=== PATIENT | male | born 1945 | race Caucasian/White ===

== ENCOUNTER → 2018-12-15 | Outpatient (CLI) | payer OTHER ==
[~2018-12-15] MED LIST: ACCUNEB SO1.25 MG/1 INH; ASPIRIN81 M2 PO; BACLOFEN 10MG T10 MG; CARVEDILOL12.5 MG PO; CARVEDILOL3.125 MG; CARVEDILOL6.25 MG PO; COREG25 MG PO; CYCLOBENZAPRINE5 MG; DOLOPHINE HCL5 MG PO; EFFEXOR 5050 MG/1 T1 PO; FLEXERIL PO; HYDROCODON-ACE1 EACH PO; HYDROCODONE; HYDROXYZINE HCL10 M1; HYDROXYZINE HCL25 M1 PO; HYPOTEARS EYE D15 ML OPHTHALMIC; IRON159 MG; IRON325 PO; LASIX 20 MG TAB20 MG PO; LEVAQUIN 500 M500 M5 PO; LEVOTHYROXIN0.137 M1 PO; LEVOTHYROXINE 0.15MG PO; LEVOTHYROXINE0.2 M1; LIPITOR40 MG PO; LOVASTAT10; LOVASTAT40 PO; METHADONE HCL 110 MG PO; MIRTAZAPINE7.5 MG; MS CONTIN15 MG PO; NEURONTIN600 MG PO; NITROGLYCERIN0.4 MG SUBLING; NORCO 5-325 TA1 EACH PO; PAROXETINE ER12.5 M1; PAXIL10 MG PO; PLAVIX 75 MG TA75 M1; PLAVIX 75 MG TA75 M1 PO; PREDNISONE 10 M10 M1 PO; PRILOSEC 20 MG20 MG; PRILOSEC 20 MG20 MG PO; PROAIR HFA8.5 GM INH; REMERON 30 MG T30 M1 PO; REMERON15 MG PO; RESTORIL7.5 MG PO; SENNA LAXATIVE25 MG PO; SENOKOT-S1 TA1 PO; SYMBICORT160 MCG/4. INH; VENLAFAXINE HCL25 MG; VENLAFAXINE HCL25 MG PO; VISTARIL 25 MG25 M1 PO; ZYRTEC10 MG PO; [UNRECOGNIZED DRUG - OTHER] PO; [UNRECOGNIZED DRUG - REMARK]
--- NOTE | 2018-12-15 16:53 | 2DMMODE ---
[place] [address] 2 D/M-MODE ECHOCARDIOGRAM Name: SHELBY BELL Room: [facility]#: [id number] Admission: 12/15/18 Attend Phys: Merrill [place] MD Discharge: Date of : 47 Date of Service: 12/15/18 1653 Report #: [id number] THIS REPORT FOR: //name// APPROVED REPORT Study performed: 12/15/2018 14:27:13 EXAM: Comprehensive 2D, Doppler, and color-flow Echocardiogram Patient Location: Out-Patient BSA: 2.17 HR: 72 bpm BP: 140/82 mmHg Other Information Study Quality: Fair Indications Chest Pain 2D Dimensions IVSd: 14.43 (7-11mm) LVOT Diam: 20.57 (18-24mm) LVDd: 44.68 mm PWd: 14.45 (7-11mm) Ascending Ao: 31.59 (22-36mm) LVDs: 29.65 (25-40mm) Aortic Root: 27.27 mm Volumes Left Atrial Volume (Systole) LA ESV Index: 18.60 mL/m2 Aortic Valve AoV Peak Stanley.: 0.91 m/s AO Peak Gr.: 3.32 mmHg LVOT Max P.96 mmHg AO Mean Gr.: 1.85 mmHg LVOT Mean P.63 mmHg LVOT Max V: 0.86 m/s AO V2 VTI: 15.89 cm LVOT Mean V: 0.60 m/s JOSE (VTI): 3.30 cm2 LVOT V1 VTI: 15.75 cm Mitral Valve E/A Ratio: 0.69 MV Decel. Time: 269.35 ms MV E Max Stanley.: 0.47 m/s MV PHT: 78.11 ms MVA (PHT): 2.82 [place]2 [place] [address] 2 D/M-MODE ECHOCARDIOGRAM Name: SHELBY BELL Room: [facility]#: [id number] Admission: 12/15/18 Attend Phys: Merrill [place] MD Discharge: Date of : 47 Date of Service: 12/15/18 1653 Report #: [id number] TDI E/Lateral E': 5.22 E/Medial E': 9.40 Medial E' Stanley.: 0.05 m/s Lateral E' Stanley.: 0.09 m/s Pulmonary Valve PV Peak Stalney.: 0.98 m/s PV Peak Gr.: 3.85 mmHg Left Ventricle The left ventricle is normal size. There is distal septal and apical hypokinesis. Mild concentric left ventricular hypertrophy. Left ventricular systolic function is mildly decreased. LVEF is 45-50%. Grade I - abnormal relaxation pattern. Right Ventricle The right ventricle is normal size. The right ventricular systolic function is normal. Atria The left atrium size is normal. The right atrium size is normal. Aortic Valve Mild aortic valve sclerosis. No aortic regurgitation is present. There is no aortic valvular stenosis. Mitral Valve The mitral valve is normal in structure. There is no mitral valve regurgitation noted. No evidence of mitral valve stenosis. Tricuspid Valve The tricuspid valve is normal in structure. There is no tricuspid valve regurgitation noted. Pulmonic Valve The pulmonary valve is normal in structure. There is no pulmonic valvular regurgitation. Great Vessels The aortic root is normal in size. IVC is normal in size and collapses >50% with inspiration. Pericardium There [place] [address] 2 D/M-MODE ECHOCARDIOGRAM Name: SHELBY BELL Room: [facility]#: [id number] Admission: 12/15/18 Attend Phys: Merrill [place] MD Discharge: Date of : 47 Date of Service: 12/15/18 1653 Report #: [id number] <Conclusion> The left ventricle is normal size. Mild concentric left ventricular hypertrophy. Left ventricular systolic function is mildly decreased. LVEF is 45-50%. Grade I - abnormal relaxation pattern. The right ventricle is normal size. The left atrium size is normal. Mild aortic valve sclerosis. No aortic regurgitation is present. There is no aortic valvular stenosis. The mitral valve is normal in structure. The tricuspid valve is normal in structure. IVC is normal in size and collapses >50% with inspiration. There is no pericardial effusion. There is distal septal and apical hypokinesis. <ELECTRONICALLY SIGNED> By: Jose Bardales MD, [facility] 12/15/18 1653 [id number] Jose Bardales MD, FAC /INF
== END ==
LOC: M.CRD 14:00
DX: I35.8 Other nonrheumatic aortic valve disorders (principal); I48.0 Paroxysmal atrial fibrillation; I10 Essential (primary) hypertension; Z88.8 Allergy status to other drugs, medicaments and biological substances